=== PATIENT | male | born 1995 | race Hispanic/Latino ===

== ENCOUNTER 2017-07-17 14:23 | Emergency (ER) | payer BC, MEDICAID, OTHER ==
[2017-07-17 14:23] VITALS: BMI 25.7
[2017-07-17 14:35] VITALS: TEMP 98.3; O2SAT 99
--- NOTE | 2017-07-17 15:38 | C.PDOC ---
History Of Present Illness 22yo male, with history of bipolar disorder and non-compliant with seroquil, presents to ER after he expressed suicidal ideation to his roommate after he was "kicked out" from his apartment. Patient currently denies suicidal ideation , hallucinations, and offers no medical complaints. PMD: None provided Time Seen by Provider: 07/17/17 15:01 Chief Complaint (Nursing): Psychiatric Evaluation History Per: Patient History/Exam Limitations: no limitations Current Symptoms Are (Timing): Gone Past Medical History Reviewed: Historical Data, Nursing Documentation, Vital Signs Vital Signs: Last Vital Signs Temp 98.3 F 07/17/17 14:34 Pulse 83 07/17/17 15:57 Resp 18 07/17/17 15:57 BP 125/81 07/17/17 15:57 Pulse Ox 99 07/17/17 16:38 - Medical History PMH: Anxiety, Bipolar Disorder, Depression, HTN (no meds), Kidney Stones, Chronic Kidney Disease Denies: Diabetes, Hepatitis, HIV, Seizures, Sexually Transmitted Disease Surgical History: No Surg Hx - [facility] Procedures APPLICATION OF SPLINT (04/14/13) CYSTOSCOPY NEC (04/01/13) DILATION OF LEFT URETER WITH INTRALUMINAL DEVICE, ENDO (03/09/15) GROUP PSYCHOTHERAPY (06/05/17) INDIV PSYCHOTHERAPY FOR SUBSTANCE ABUSE, COGNITIV BEHAVIORAL (06/05/17) INDIVID PSYCHOTHERAP NEC (04/14/13) INDIVIDUAL PSYCHOTHERAPY, BEHAVIORAL (03/22/16) INDIVIDUAL PSYCHOTHERAPY, COGNITIVE-BEHAVIORAL (06/05/17) INJECT/INFUSE NEC (04/28/14) INTRODUCTION OF SERUM/TOX/VACCINE INTO MUSCLE, PERC APPROACH (01/12/16) OTHER GROUP THERAPY (04/14/13) PSYCHIA INTERV/EVAL NEC (05/17/13) RETROGRADE PYELOGRAM (03/09/13) TETANUS TOXOID ADMINIST (10/05/14) URETERAL CATHETERIZATION (04/01/13) Family History: States: No Known Family Hx, Unknown Family Hx - Social History Hx Alcohol Use: Yes Hx Substance Use: Yes - Immunization History Hx Tetanus Toxoid Vaccination: No Hx Influenza Vaccination: No Hx Pneumococcal Vaccination: No Review Of Systems Except As Marked, All Systems Reviewed And Found Negative. Constitutional: Negative for: Fever, Chills Eyes: Negative for: Pain, Vision Change ENT: Negative for: Ear Pain, Ear Discharge Cardiovascular: Negative for: Chest Pain, Palpitations Respiratory: Negative for: Cough, Shortness of Breath Gastrointestinal: Negative for: Nausea, Vomiting Genitourinary: Negative for: Dysuria, Frequency Musculoskeletal: Negative for: Neck Pain, Shoulder Pain Skin: Negative for: Rash Neurological: Negative for: Weakness Psych: Negative for: Suicidal ideation Physical Exam - Physical Exam Appears: Non-toxic, No Acute Distress Skin: Normal Color, Warm, Dry Head: Atraumatic, Normacephalic Eye(s): bilateral: Normal Inspection, PERRL, EOMI Ear(s): Bilateral: Normal Oral Mucosa: Moist Tongue: Normal Appearing Lips: Normal Appearing Teeth: Normal Dentition Gingiva: Normal Appearing Throat: Normal Neck: Normal ROM, Supple Chest: Symmetrical Cardiovascular: Rhythm Regular Respiratory: Normal Breath Sounds Gastrointestinal/Abdominal: Normal Exam, Soft, No Tenderness Back: Normal Inspection Extremity: Normal ROM Extremity: Bilateral: Atraumatic, No Pedal Edema, Normal Color And Temperature, Normal ROM Neurological/Psych: Oriented x3 ED Course And Treatment O2 Sat by Pulse Oximetry: 99 (RA) Pulse Ox Interpretation: Normal Medical Decision Making Medical Decision Making: Impression: Psychiatric evaluation Plan: -- Crisis evaluation Time: 1537 Prior records reviewed, patient was seen at [facility] with similar complaints. Per crisis team, patient is stable for discharge home. He was instructed by the team to follow up at [facility] center. Disposition Counseled Patient/Family Regarding: Diagnosis - Disposition Referrals: [facility] [Outside] Disposition: HOME/ ROUTINE Disposition Time: 15:37 Condition: GOOD Additional Instructions: pt has referral papers for [facility] out patient intervention . return if symptoms worsen Prescriptions: QUEtiapine [SEROquel] 100 mg PO DAILY 30 Days #30 tab QUEtiapine [SEROquel] 400 mg PO DAILY 30 Days #30 tab Forms: [employer] (Belarusian) - Clinical Impression Clinical Impression: Manic bipolar I disorder - Scribe Statement The provider has reviewed the documentation as recorded by the Scribe (Shannon Stover) Provider Attestation: All medical record entries made by the Scribe were at my direction and personally dictated by me. I have reviewed the chart and agree that the record accurately reflects my personal performance of the history, physical exam, medical decision making, and the department course for this patient. I have also personally directed, reviewed, and agree with the discharge instructions and disposition.
[2017-07-17 15:58] VITALS: BP 125/81; PULSE 83; RESP 18
== END 2017-07-17 15:58 | disposition home or self-care (01) ==
LOC: C.ER 14:23
DX: F31.9 Bipolar disorder, unspecified (principal)

== ENCOUNTER 2017-07-18 10:51 | Emergency (ER) | payer OTHER ==
[2017-07-18 10:51] VITALS: BMI 25.7
--- NOTE | 2017-07-18 12:19 | C.PDOC ---
History Of Present Illness 22yo male, presents to ED requesting detox from Xanax. He is currently on a prescribed regimen of Seroquil and Gabapentin but states he has been using street Xanax. He also admits to cocaine use. He denies any suicidal ideation or homicidal ideation. Patient denies any fever, chills, chest pain, shortness of breath, or abdominal pain. He has no other medical complaints. PMD: None provided Time Seen by Provider: 07/18/17 11:11 Chief Complaint (Nursing): Substance Abuse History Per: Patient History/Exam Limitations: no limitations Associated Symptoms: denies: Suicidal Thoughts, Suicidal Plan Past Medical History Reviewed: Historical Data, Nursing Documentation, Vital Signs Vital Signs: Last Vital Signs Temp 98.5 F 07/18/17 10:56 Pulse 111 H 07/18/17 13:00 Resp 14 07/18/17 13:00 BP 105/81 07/18/17 13:00 Pulse Ox 96 07/18/17 13:00 - Medical History PMH: Anxiety, Bipolar Disorder, Depression, HTN (no meds), Kidney Stones, Chronic Kidney Disease Denies: Diabetes, Hepatitis, HIV, Seizures, Sexually Transmitted Disease Surgical History: No Surg Hx - [facility] Procedures APPLICATION OF SPLINT (04/14/13) CYSTOSCOPY NEC (04/01/13) DILATION OF LEFT URETER WITH INTRALUMINAL DEVICE, ENDO (03/09/15) GROUP PSYCHOTHERAPY (06/05/17) INDIV PSYCHOTHERAPY FOR SUBSTANCE ABUSE, COGNITIV BEHAVIORAL (06/05/17) INDIVID PSYCHOTHERAP NEC (04/14/13) INDIVIDUAL PSYCHOTHERAPY, BEHAVIORAL (03/22/16) INDIVIDUAL PSYCHOTHERAPY, COGNITIVE-BEHAVIORAL (06/05/17) INJECT/INFUSE NEC (04/28/14) INTRODUCTION OF SERUM/TOX/VACCINE INTO MUSCLE, PERC APPROACH (01/12/16) OTHER GROUP THERAPY (04/14/13) PSYCHIA INTERV/EVAL NEC (05/17/13) RETROGRADE PYELOGRAM (03/09/13) TETANUS TOXOID ADMINIST (10/05/14) URETERAL CATHETERIZATION (04/01/13) Family History: States: Unknown Family Hx - Social History Hx Alcohol Use: Yes Hx Substance Use: Yes - Immunization History Hx Tetanus Toxoid Vaccination: No Hx Influenza Vaccination: No Hx Pneumococcal Vaccination: No Review Of Systems Except As Marked, All Systems Reviewed And Found Negative. Constitutional: Negative for: Fever, Chills Cardiovascular: Negative for: Chest Pain Respiratory: Negative for: Shortness of Breath Gastrointestinal: Negative for: Abdominal Pain Psych: Positive for: Other (requesting detox) Physical Exam - Physical Exam Appears: Toxic (mild), No Acute Distress Skin: Normal Color, Warm, Dry Head: Atraumatic, Normacephalic Eye(s): bilateral: Normal Inspection Neck: Normal ROM, Supple Chest: Symmetrical Cardiovascular: Rhythm Regular Respiratory: Normal Breath Sounds Gastrointestinal/Abdominal: Normal Exam, Soft, No Tenderness Extremity: Normal ROM Neurological/Psych: Other (somnolent but easily to arousable with verbal stimulus. No active psychosis) Gait: Unsteady ED Course And Treatment O2 Sat by Pulse Oximetry: 98 (RA) Pulse Ox Interpretation: Normal Progress - Re-Evaluation Re-evaluation Note: 07/18/17 1615 PT REQUESTING TO SLEEP MORE, "IF I DON'T I WILL KILL MYSELF" 07/18/17 16:30 D/W CRISIS: WELL KNOWN TO PSYCH, DR KENNY. BI PRIOR ER VISITS W [facility] PRIOR COMPLIANTS. CLEARED FOR DC - Data Reviewed Data Reviewed: Old records Disposition Counseled Patient/Family Regarding: Diagnosis, Need For Followup - Disposition Referrals: [facility] [Provider Group] [facility] [Other] Disposition: HOME/ ROUTINE Disposition Time: 16:31 Condition: IMPROVED Instructions: Polysubstance Abuse (DC) Forms: [employer] (Macedonian) - Clinical Impression Clinical Impression: Benzodiazepine abuse, Malingering - Scribe Statement The provider has reviewed the documentation as recorded by the Brandonibe (Shannon Stover) Provider Attestation: All medical record entries made by the Brandonibdemario were at my direction and personally dictated by me. I have reviewed the chart and agree that the record accurately reflects my personal performance of the history, physical exam, medical decision making, and the department course for this patient. I have also personally directed, reviewed, and agree with the discharge instructions and disposition.
[2017-07-18 16:32] VITALS: O2SAT 98
[2017-07-18 16:40] VITALS: BP 119/69; PULSE 86; RESP 16; TEMP 98.2
== END 2017-07-18 16:50 | disposition home or self-care (01) ==
LOC: C.ER 10:51
DX: F13.10 Sedative, hypnotic or anxiolytic abuse, uncomplicated (principal); Z76.5 Malingerer [conscious simulation]; I12.9 Hypertensive chronic kidney disease with stage 1 through stage 4 chronic kidney disease, or unspecified chronic kidney disease; N18.9 Chronic kidney disease, unspecified

== ENCOUNTER 2017-07-25 11:41 | Emergency (ER) | payer OTHER ==
[2017-07-25 11:41] VITALS: BMI 25.7
[2017-07-25 11:48] VITALS: BP 127/86; PULSE 99; RESP 16; TEMP 98.2; O2SAT 100
--- NOTE | 2017-07-25 12:10 | C.PDOC ---
History Of Present Illness 22 yo male w/PMhx of opiod, cocaine abuse, come in request detox. Pt admits, last dose of drug was 24 hrs ago. Otherwise, pt denies homocidal, suicidal ideation, denies hallucination, denies any other active physical accompanies. Ambulate to Ed for evaluation, not in any apparent distress. Time Seen by Provider: 07/25/17 12:04 Chief Complaint (Nursing): Substance Abuse History Per: Patient Past Medical History Reviewed: Historical Data, Nursing Documentation, Vital Signs Vital Signs: Last Vital Signs Temp 98.2 F 07/25/17 11:46 Pulse 99 H 07/25/17 11:46 Resp 16 07/25/17 11:46 BP 127/86 07/25/17 11:46 Pulse Ox 100 07/25/17 13:46 - Medical History PMH: Anxiety, Bipolar Disorder, Depression, HTN (no meds), Kidney Stones, Chronic Kidney Disease Denies: Diabetes, Hepatitis, HIV, Seizures, Sexually Transmitted Disease - [facility] Procedures APPLICATION OF SPLINT (04/14/13) CYSTOSCOPY NEC (04/01/13) DILATION OF LEFT URETER WITH INTRALUMINAL DEVICE, ENDO (03/09/15) GROUP PSYCHOTHERAPY (06/05/17) INDIV PSYCHOTHERAPY FOR SUBSTANCE ABUSE, COGNITIV BEHAVIORAL (06/05/17) INDIVID PSYCHOTHERAP NEC (04/14/13) INDIVIDUAL PSYCHOTHERAPY, BEHAVIORAL (03/22/16) INDIVIDUAL PSYCHOTHERAPY, COGNITIVE-BEHAVIORAL (06/05/17) INJECT/INFUSE NEC (04/28/14) INTRODUCTION OF SERUM/TOX/VACCINE INTO MUSCLE, PERC APPROACH (01/12/16) OTHER GROUP THERAPY (04/14/13) PSYCHIA INTERV/EVAL NEC (05/17/13) RETROGRADE PYELOGRAM (03/09/13) TETANUS TOXOID ADMINIST (10/05/14) URETERAL CATHETERIZATION (04/01/13) Family History: States: Unknown Family Hx - Social History Hx Tobacco Use: Yes Hx Alcohol Use: No Hx Substance Use: Yes - Immunization History Hx Tetanus Toxoid Vaccination: No Hx Influenza Vaccination: No Hx Pneumococcal Vaccination: No Review Of Systems Except As Marked, All Systems Reviewed And Found Negative. Constitutional: Negative for: Fever, Chills Eyes: Negative for: Vision Change ENT: Negative for: Throat Pain Cardiovascular: Negative for: Chest Pain, Palpitations, Edema, Light Headedness Respiratory: Negative for: Cough, Shortness of Breath, Wheezing Gastrointestinal: Negative for: Nausea, Vomiting, Abdominal Pain Genitourinary: Negative for: Dysuria, Incontinence Musculoskeletal: Negative for: Neck Pain, Back Pain Skin: Negative for: Rash Neurological: Negative for: Weakness, Numbness, Altered Mental Status, Headache , Dizziness Psych: Negative for: Suicidal ideation, Withdrawal Physical Exam - Physical Exam Appears: Well, Non-toxic, No Acute Distress Skin: Normal Color, Warm, Dry, No Rash Head: Normacephalic Eye(s): bilateral: PERRL Nose: No Flaring, No Discharge Oral Mucosa: Moist, No Drooling Tongue: Normal Appearing Lips: Normal Appearing Throat: Erythema Neck: Trachea Midline, Supple Cardiovascular: Rhythm Regular, No Friction Rub, No Murmur Respiratory: No Decreased Breath Sounds, No Accessory Muscle Use, No Stridor, No Wheezing Gastrointestinal/Abdominal: Soft, No Tenderness, No Distention, No Guarding Back: Normal Inspection, No CVA Tenderness Extremity: Normal ROM, No Deformity, No Swelling Neurological/Psych: Oriented x3, Normal Speech, Normal Motor, Normal Sensation, Normal Reflexes ED Course And Treatment - Laboratory Results Result Diagrams: 07/25/17 12:41 07/25/17 12:41 Lab Interpretation: Normal O2 Sat by Pulse Oximetry: 100 Pulse Ox Interpretation: Normal Progress Note: On re-eval, pt is afebrile, hemodynamicaly stable. Non-toxic. Neurologicaly intact. Blood work review appears normal. Pt is medically cleared for PES evaluation. After pt was evaluated by PES, pt was cleared, no inpatient detox tx recommend at this time. Discharge with outpt f/u recommend. Pt understand and agrees with discharge. Disposition - Disposition Disposition: HOME/ ROUTINE Disposition Time: 13:46 Condition: STABLE Additional Instructions: Follow up with Det[facility] oupatient as per PES consult for further evaluation and treatment return if any new changes. Instructions: Polysubstance Abuse Forms: [employer] (Belarusian) - Clinical Impression Clinical Impression: Polysubstance (excluding opioids) dependence
[2017-07-25 12:52] LABS: BASO # 0.1 K/uL (0.0-0.2); BASO % 0.6 % (0.0-2.0); EOS # 0.2 K/uL (0.0-0.7); EOS % 2.2 % (0.0-4.0); HEMOGLOBIN 12.7 g/dL (12.0-18.0); LYMPH % 22.1 % (20.0-40.0); MEAN CELL VOLUME 88.8 fL (80.0-94.0); MEAN CORPUSCULAR HEMOGLOBIN 30.2 pg (27.0-31.0); MEAN CORPUSCULAR HGB CONC 34.1 g/dL (33.0-37.0); MEAN PLATELET VOLUME 7.1 fL (7.2-11.7); MONO # 0.6 K/uL (0.0-0.8); NEUT # 6.2 K/uL (1.8-7.0); NEUT % 68.1 % (50.0-75.0); NRBC % 0.1 % (0.0-2.0); RBC 4.21 Mil/uL (4.40-5.90); RED CELL DISTRIBUTION WIDTH 15.3 % (11.5-14.5); WHITE BLOOD COUNT 9.1 K/uL (4.8-10.8)
[2017-07-25 12:54] LABS: URINE BILIRUBIN NEGATIVE (NEGATIVE); URINE BLOOD NEGATIVE (NEGATIVE); URINE CLARITY Clear (Clear); URINE COLOR Yellow (YELLOW); URINE GLUCOSE (UA) NORMAL (Normal); URINE LEUKOCYTE ESTERASE NEG Leu/uL (Negative); URINE PROTEIN NEGATIVE (NEGATIVE); URINE UROBILINOGEN NORMAL mg/dL (0.2-1.0)
[2017-07-25 13:11] LABS: ALB/GLOB RATIO 1.3 (1.0-2.1); ALBUMIN 3.8 g/dL (3.5-5.0); ALT/SGPT 31 U/L (21-72); AST/SGOT 28 U/L (17-59); BLOOD UREA NITROGEN 19 mg/dL (9-20); CALCIUM 9.3 mg/dl (8.6-10.4); GFR AFRICAN-AMERICAN > 60; GFR NON-AFRICAN AMERICAN > 60
[2017-07-25 13:26] LABS: BARBITURATES, UR NEGATIVE (NEGATIVE); BENZODIAZEPINES, UR NEGATIVE (NEGATIVE); OPIATES, UR NEGATIVE (NEGATIVE); PHENCYCLIDINE, UR NEGATIVE (NEGATIVE)
== END 2017-07-25 14:40 | disposition home or self-care (01) ==
LOC: C.ER 11:41
DX: F19.20 Other psychoactive substance dependence, uncomplicated (principal); I10 Essential (primary) hypertension; F31.9 Bipolar disorder, unspecified; F17.210 Nicotine dependence, cigarettes, uncomplicated

== ENCOUNTER 2017-07-29 11:00 | Emergency (ER) | payer BC, MEDICAID, OTHER ==
[2017-07-29 11:00] VITALS: BMI 21.6
[2017-07-29 11:07] VITALS: O2SAT 98
[2017-07-29 12:07] LABS: BASO # 0.1 K/uL (0.0-0.2); BASO % 0.6 % (0.0-2.0); EOS # 0.2 K/uL (0.0-0.7); EOS % 1.8 % (0.0-4.0); HEMOGLOBIN 12.9 g/dL (12.0-18.0); LYMPH # 2.6 K/uL (1.0-4.3); LYMPH % 19.3 % (20.0-40.0); MEAN CELL VOLUME 88.8 fL (80.0-94.0); MEAN CORPUSCULAR HEMOGLOBIN 30.3 pg (27.0-31.0); MEAN CORPUSCULAR HGB CONC 34.1 g/dL (33.0-37.0); MEAN PLATELET VOLUME 6.7 fL (7.2-11.7); MONO % 7.2 % (0.0-10.0); NEUT # 9.8 K/uL (1.8-7.0); NEUT % 71.1 % (50.0-75.0); RBC 4.27 Mil/uL (4.40-5.90); RED CELL DISTRIBUTION WIDTH 15.4 % (11.5-14.5)
[2017-07-29 12:10] LABS: WHITE BLOOD COUNT 13.7 K/uL (4.8-10.8)
[2017-07-29 12:13] LABS: URINE BILIRUBIN NEGATIVE (NEGATIVE); URINE BLOOD NEGATIVE (NEGATIVE); URINE CLARITY Clear (Clear); URINE COLOR Yellow (YELLOW); URINE GLUCOSE (UA) NORMAL (Normal); URINE LEUKOCYTE ESTERASE NEG Leu/uL (Negative); URINE PROTEIN NEGATIVE (NEGATIVE); URINE UROBILINOGEN NORMAL mg/dL (0.2-1.0)
[2017-07-29 12:24] LABS: ALB/GLOB RATIO 1.3 (1.0-2.1); ALBUMIN 3.9 g/dL (3.5-5.0); ALT/SGPT 24 U/L (21-72); AST/SGOT 27 U/L (17-59); BLOOD UREA NITROGEN 10 mg/dL (9-20); CALCIUM 9.2 mg/dl (8.6-10.4); GFR AFRICAN-AMERICAN > 60; GFR NON-AFRICAN AMERICAN > 60
--- NOTE | 2017-07-29 12:28 | C.PDOC ---
History Of Present Illness 22 y/o male with a history of substance abuse presents to the ED for detox. Patient was pre-screened here for detox. He admits to having a cocaine addiction stating he has been 5 days clean. However, he states he had one Percocet at the hospital a few days ago. He is looking to move to the [place] but needs medical clearance to be approved. Patient has no medical complaints. PMD: none provided Time Seen by Provider: 07/29/17 11:10 Chief Complaint (Nursing): Substance Abuse History Per: Patient History/Exam Limitations: no limitations Onset/Duration Of Symptoms: Days (x5) Recent travel outside of the [place]: No Past Medical History Reviewed: Historical Data, Nursing Documentation, Vital Signs Vital Signs: Last Vital Signs Temp 98.4 F 07/29/17 11:03 Pulse 104 H 07/29/17 11:03 Resp 19 07/29/17 11:03 BP 142/89 07/29/17 11:03 Pulse Ox 98 07/29/17 12:32 - Medical History PMH: Anxiety, Bipolar Disorder, Depression, Fractures (R clavicle), HTN (no meds ), Kidney Stones, Chronic Kidney Disease Denies: Diabetes, Hepatitis, HIV, Seizures, Sexually Transmitted Disease Surgical History: No Surg Hx - [facility] Procedures APPLICATION OF SPLINT (04/14/13) CYSTOSCOPY NEC (04/01/13) DILATION OF LEFT URETER WITH INTRALUMINAL DEVICE, ENDO (03/09/15) GROUP PSYCHOTHERAPY (06/05/17) INDIV PSYCHOTHERAPY FOR SUBSTANCE ABUSE, COGNITIV BEHAVIORAL (06/05/17) INDIVID PSYCHOTHERAP NEC (04/14/13) INDIVIDUAL PSYCHOTHERAPY, BEHAVIORAL (03/22/16) INDIVIDUAL PSYCHOTHERAPY, COGNITIVE-BEHAVIORAL (06/05/17) INJECT/INFUSE NEC (04/28/14) INTRODUCTION OF SERUM/TOX/VACCINE INTO MUSCLE, PERC APPROACH (01/12/16) OTHER GROUP THERAPY (04/14/13) PSYCHIA INTERV/EVAL NEC (05/17/13) RETROGRADE PYELOGRAM (03/09/13) TETANUS TOXOID ADMINIST (10/05/14) URETERAL CATHETERIZATION (04/01/13) Family History: States: Unknown Family Hx - Social History Hx Tobacco Use: Yes Hx Alcohol Use: No Hx Substance Use: Yes - Immunization History Hx Tetanus Toxoid Vaccination: No Hx Influenza Vaccination: Yes Hx Pneumococcal Vaccination: No Review Of Systems Except As Marked, All Systems Reviewed And Found Negative. Physical Exam - Physical Exam Appears: Well, No Acute Distress Skin: Normal Color, Warm, Dry Head: Atraumatic Eye(s): bilateral: PERRL, EOMI, Abnormal Pupil (grossly dilated) Cardiovascular: Rhythm Regular, No Murmur Respiratory: Normal Breath Sounds Gastrointestinal/Abdominal: Normal Exam, Soft, No Tenderness Back: Normal Inspection Extremity: Normal ROM Neurological/Psych: Oriented x3 ED Course And Treatment - Laboratory Results Result Diagrams: 07/29/17 12:00 07/29/17 12:00 O2 Sat by Pulse Oximetry: 98 (RA) Pulse Ox Interpretation: Normal (\) Medical Decision Making Medical Decision Making: Time: Impression: Pending medical clearance for detox Initial Plan: * Drug Screen * Urinalysis Scribe Attestation: Documented by Vijay Schaefer acting as a scribe Miranda Hses MD. Scribe Attestation: All medical record entries made by the Scribe were at my direction and personally dictated by me. I have reviewed the chart and agree that the record accurately reflects my personal performance of the history, physical exam, medical decision making, and the department course for this patient. I have also personally directed, reviewed, and agree with the discharge instructions and disposition. Disposition Counseled Patient/Family Regarding: Studies Performed, Diagnosis - Disposition Disposition: HOME/ ROUTINE Disposition Time: 13:37 Condition: STABLE Forms: [facility] (Gambian), General Discharge Instructions - Clinical Impression Clinical Impression: Encounter for drug screening
[2017-07-29 12:37] LABS: BARBITURATES, UR NEGATIVE (NEGATIVE); BENZODIAZEPINES, UR NEGATIVE (NEGATIVE); OPIATES, UR NEGATIVE (NEGATIVE); PHENCYCLIDINE, UR NEGATIVE (NEGATIVE)
[2017-07-29 14:04] VITALS: BP 125/70; PULSE 105; RESP 16; TEMP 99.3
== END 2017-07-29 14:04 | disposition home or self-care (01) ==
LOC: C.ER 11:00
DX: Z04.8 Encounter for examination and observation for other specified reasons (principal); I12.9 Hypertensive chronic kidney disease with stage 1 through stage 4 chronic kidney disease, or unspecified chronic kidney disease; N18.9 Chronic kidney disease, unspecified

== ENCOUNTER 2017-08-24 11:29 | Emergency (ER) | payer OTHER ==
[2017-08-24 11:29] VITALS: BMI 21.6
[2017-08-24 11:33] VITALS: BP 145/99; PULSE 103; RESP 20; TEMP 99.4; O2SAT 96
--- NOTE | 2017-08-24 12:16 | C.PDOC ---
History Of Present Illness 22 y/o male, w/PMhx of depression and bipolar disorder, presents to the ER requesting medication refills. Patient states that came from the [employer] and he needs refills for Wellbutrin and Seroquel. Patient denies having active physical complaints. Time Seen by Provider: 08/24/17 11:49 Chief Complaint (Nursing): Med Refill History Per: Patient History/Exam Limitations: no limitations Past Medical History Reviewed: Historical Data, Nursing Documentation, Vital Signs Vital Signs: Last Vital Signs Temp 99.4 F 08/24/17 11:32 Pulse 103 H 08/24/17 11:32 Resp 20 08/24/17 11:32 BP 145/99 H 08/24/17 11:32 Pulse Ox 96 08/24/17 13:14 - Medical History PMH: Anxiety, Bipolar Disorder, Depression, Fractures (R clavicle), HTN (no meds ), Kidney Stones, Chronic Kidney Disease Denies: Diabetes, Hepatitis, HIV, Seizures, Sexually Transmitted Disease Other Surgeries: Hx of surgeries - [facility] Procedures APPLICATION OF SPLINT (04/14/13) CYSTOSCOPY NEC (04/01/13) DILATION OF LEFT URETER WITH INTRALUMINAL DEVICE, ENDO (03/09/15) GROUP PSYCHOTHERAPY (06/05/17) INDIV PSYCHOTHERAPY FOR SUBSTANCE ABUSE, COGNITIV BEHAVIORAL (06/05/17) INDIVID PSYCHOTHERAP NEC (04/14/13) INDIVIDUAL PSYCHOTHERAPY, BEHAVIORAL (03/22/16) INDIVIDUAL PSYCHOTHERAPY, COGNITIVE-BEHAVIORAL (06/05/17) INJECT/INFUSE NEC (04/28/14) INTRODUCTION OF SERUM/TOX/VACCINE INTO MUSCLE, PERC APPROACH (01/12/16) OTHER GROUP THERAPY (04/14/13) PSYCHIA INTERV/EVAL NEC (05/17/13) RETROGRADE PYELOGRAM (03/09/13) TETANUS TOXOID ADMINIST (10/05/14) URETERAL CATHETERIZATION (04/01/13) Family History: States: No Known Family Hx - Social History Hx Tobacco Use: Yes Hx Alcohol Use: No Hx Substance Use: Yes - Immunization History Hx Tetanus Toxoid Vaccination: No Hx Influenza Vaccination: Yes Hx Pneumococcal Vaccination: No Review Of Systems Except As Marked, All Systems Reviewed And Found Negative. Physical Exam - Physical Exam Appears: No Acute Distress Skin: Normal Color, Warm, Dry Head: Atraumatic, Normacephalic Eye(s): bilateral: Normal Inspection Nose: Normal Oral Mucosa: Moist Neck: Supple Chest: Symmetrical Cardiovascular: Rhythm Regular Respiratory: Normal Breath Sounds, No Rales, No Rhonchi, No Wheezing Neurological/Psych: Oriented x3, Normal Speech ED Course And Treatment O2 Sat by Pulse Oximetry: 96 (RA) Pulse Ox Interpretation: Normal Disposition Counseled Patient/Family Regarding: Diagnosis, Need For Followup, Rx Given - Disposition Disposition: HOME/ ROUTINE Disposition Time: 12:20 Condition: STABLE Additional Instructions: Follow up in [facility] service in [place], [place] Address: [address] [place] [id number] Hours: Open now Closes 8PM Prescriptions: buPROPion [Bupropion HCl] 150 mg PO DAILY #14 tab Gabapentin [Neurontin] 200 mg PO TID #21 capsule Quetiapine Fumarate [Seroquel] 300 mg PO HS #7 tablet Forms: General Discharge Instructions - POA Present On Arrival: None - Clinical Impression Clinical Impression: Bipolar 1 disorder, depressed - Scribe Statement The provider has reviewed the documentation as recorded by the Brandonibdemario Lemon Provider Attestation: All medical record entries made by the Brandonibe were at my direction and personally dictated by me. I have reviewed the chart and agree that the record accurately reflects my personal performance of the history, physical exam, medical decision making, and the department course for this patient. I have also personally directed, reviewed, and agree with the discharge instructions and disposition.
== END 2017-08-24 12:42 | disposition home or self-care (01) ==
LOC: C.ER 11:29
DX: F31.9 Bipolar disorder, unspecified (principal); I12.9 Hypertensive chronic kidney disease with stage 1 through stage 4 chronic kidney disease, or unspecified chronic kidney disease; N18.9 Chronic kidney disease, unspecified; Z72.0 Tobacco use